=== PATIENT | female | born 1980 | race Caucasian/White ===

== ENCOUNTER 2017-01-06 17:36 | Emergency (ER) | payer MEDICAID ==
--- NOTE | 2017-01-11 07:33 | ER ---
ADMIT: 01/06/2017 RM/LOC: ER [facility] MR#: [id number] [address] [id number] RY CASTANO [address] [place] [address] Emergency Room Report SEX: F AGE: 36 : 1980 DATE: 01/06/2017 ADDENDUM: This patient comes to the ER because she is having back pain, chest pain, body aching, and headache. She is also lightheaded and very nauseated. She has fibromyalgia and thinks her fibromyalgia might be acting up. On physical exam, she is alert and oriented. Her vital signs are stable. Her lungs are clear. She acts and speaks appropriately. CBC and BMP were normal. Her urinalysis did have positive leukocyte esterase, and she was having urgency and frequency. I wrote a prescription for Bactrim. We will have her push fluids and follow up with her primary as needed. Please see my T-sheet. PAYAM Muniz / Reji March MD / amber JOB #: [id number] CC: David Mcgarry MD, Attending Physician Merced Patten MD, Family Physician
== END 2017-01-06 20:00 | disposition home or self-care (01) ==
LOC: ER 17:36
DX: N39.0 Urinary tract infection, site not specified (principal); M79.7 Fibromyalgia; Z88.0 Allergy status to penicillin; I10 Essential (primary) hypertension; I48.91 Unspecified atrial fibrillation